=== PATIENT | male | born 1965 ===

== ENCOUNTER 2018-06-14 14:10 | Outpatient (CLI) | payer OTHER | END 2018-06-14 14:12 | disposition home or self-care (01) | LOC: RAD 14:10 | DX: I10 Essential (primary) hypertension (principal) ==

== ENCOUNTER 2019-04-02 10:29 | Outpatient (CLI) | payer OTHER | END 2019-04-02 10:31 | disposition home or self-care (01) | LOC: RAD 10:29 | DX: M47.812 Spondylosis without myelopathy or radiculopathy, cervical region (principal); M54.2 Cervicalgia; M70.61 Trochanteric bursitis, right hip; M70.62 Trochanteric bursitis, left hip ==

== ENCOUNTER 2021-04-20 09:00 | Outpatient (CLI) | payer OTHER | END 2021-04-20 09:30 | disposition home or self-care (01) | LOC: PPH VACUNA 09:00 | PROVIDERS: ATTEND Emergency Medicine Pediatric Emergency Medicine | DX: Z23 Encounter for immunization (principal) ==

== ENCOUNTER 2022-06-20 13:46 | Outpatient (CLI) | payer OTHER | END 2022-06-20 13:56 | disposition home or self-care (01) | LOC: PPH VACUNA 13:46 | PROVIDERS: ATTEND Emergency Medicine Pediatric Emergency Medicine | DX: Z23 Encounter for immunization (principal) ==

== ENCOUNTER 2023-08-07 12:34 | Emergency (ER) | payer OTHER ==
[~2023-08-07] VITALS: Ht 177.8 cm; Wt 99.8 kg
[2023-08-07] MEDS ORDERED: AVAPRO300 MG PO (14:02)
[2023-08-07] MEDS ORDERED: KAPSPARGO SPRIN25 MG PO (14:02)
[2023-08-07] MEDS ORDERED: HYDROCHLOROTHIA25 MG PO (14:03)
[2023-08-07 15:35] LABS: HEMATOCRIT 41.4 % (39.0-48.0); MEAN CELL VOLUME 85.9 fL (80.0-100.00); MEAN CORPUSCULAR HEMOGLOBIN 28.9 pg (27.00-32.0); MEAN CORPUSCULAR HGB CONC 33.7 g/dl (32.0-36.0); PLATELET COUNT 268 K/uL (150-450); RED BLOOD COUNT 4.83 M/uL (4.00-6.00)
[2023-08-07 17:04] LABS: ALBUMIN 4.1 gm/dL (3.4-5.0); BILIRUBIN TOTAL 1.12 mg/dL (0.3-1.2); CALCIUM 9.4 mg/dL (8.5-10.1); CREATININE SERUM 1.07 mg/dL (0.70-1.30); GFR 70.98; GLOBULINA 4.1 G/DL (2.4-3.5); POTASSIUM 3.58 mEq/L (3.5-5.1); TOTAL PROTEIN 8.2 gm/dL (6.4-8.2)
[2023-08-07] MEDS ORDERED: TOPROL XL50 MG PO (20:16)
== END 2023-08-07 20:30 | disposition home or self-care (01) ==
LOC: ER 12:34
PROVIDERS: General Practice
DX: I16.0 Hypertensive urgency (principal); I10 Essential (primary) hypertension